=== PATIENT | male | born 1975 | race Caucasian/White ===

== ENCOUNTER 2016-05-25 11:48 | Emergency (ER) | payer SELFPAY | END 2016-05-25 13:10 | disposition home or self-care (01) | LOC: ER 11:48 | DX: J06.9 Acute upper respiratory infection, unspecified (principal); M79.1 Myalgia; F32.9 Major depressive disorder, single episode, unspecified; F17.210 Nicotine dependence, cigarettes, uncomplicated; Z79.899 Other long term (current) drug therapy | CPT/HCPCS: 87502 ==